=== PATIENT | male | born 1945 ===

== ENCOUNTER 2017-05-10 17:36 | Emergency (ER) | payer OTHER, BC ==
[2017-05-10 17:45] VITALS: BP 163/104; PULSE 80; RESP 20; TEMP 98.6; O2SAT 98
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
== END 2017-05-10 19:39 | disposition home or self-care (01) ==
LOC: C.ER 17:36
DX: S16.1XXA Strain of muscle, fascia and tendon at neck level, initial encounter (principal); S39.012A Strain of muscle, fascia and tendon of lower back, initial encounter; V78.5XXA Driver of bus injured in noncollision transport accident in traffic accident, initial encounter; Y92.410 Unspecified street and highway as the place of occurrence of the external cause